=== PATIENT | male | born 1985 | race Caucasian/White ===

== ENCOUNTER 2023-01-15 11:27 | Emergency (ER) | payer OTHER, SELFPAY ==
[2023-01-15 11:43] VITALS: BP 120/83; PULSE 90; RESP 16; TEMP 37; O2SAT 98
--- NOTE | 2023-01-15 12:23 | ED.WOUNDLAC ---
HPI - Wound/Laceration General Chief Complaint: Wound/Laceration Stated Complaint: puncture to palm left hand Time Seen by Provider: 01/15/23 12:24 Source: patient, RN notes reviewed and old records reviewed Mode of arrival: ambulatory Limitations: no limitations History of Present Illness HPI narrative: 37-year-old male presents to the [facility] with concerns for a puncture to the left hand palmar aspect. Occurred yesterday States he punctured when he was collecting scrap metal last night. Has not washed it. No treatment prior to arrival. Extremity Location: Left: hand Patient tetanus UTD: No Related Data Allergies Allergy/AdvReac Type Severity Reaction Status Date / Time No Known Allergies Allergy Verified 01/15/23 11:42 Review of Systems Review of Systems: All systems reviewed & are unremarkable except as noted in HPI and below Constitutional: Constitutional: Reports no additional constitutional complaints Eyes: Eyes: Reports no additional eye complaints ENT: Reports system reviewed and no additional complaints, except as documented Cardiovascular: Cardiovascular: Reports no additional cardiovascular complaints, Denies chest pain and Denies dyspnea Respiratory: Respiratory: Reports no additional respiratory complaints, Denies chest congestion, Denies cough and Denies dyspnea Gastrointestinal: Gastrointestinal: Reports no additional gastrointestinal complaints, Denies abdominal pain, Denies nausea and Denies vomiting Musculoskeletal: Musculoskeletal: Reports no additional musculoskeletal complaints Integumentary/Breasts: Skin/Breast: Reports as per HPI, Reports skin swelling and Reports wounds Neurologic: Reports system reviewed and no additional complaints, except as documented Psychiatric: Psychiatric: Reports no additional psychiatric complaints Allergic/Immunologic: Allergic/Immunologic: Reports no additional allergic/immunologic complaints PMFSH Past Medical History Medical History Patient denies medical problems Surgical History Surgical History No pertinent past surgical history Comments At the time of my signature, I reviewed and agree with the nursing past medical, surgical, social, and family history. There is no relevant family history pertinent to the patient complaint. Exam Const: General: cooperative, healthy appearing, comfortable, no acute distress, well developed, alert and well nourished Nutritional Appearance: well nourished Orientation/consciousness: patient oriented x3 Limitations: no limitations HENMT: Head: normal to inspection Ears: hearing grossly normal bilaterally and external ears normal Face/Nose/Sinus: Normal external nose present, Normal nares present, Normal nasal mucous membranes and turbinates present, normal facial exam and face symmetric Face and sinus: normal facial exam and face symmetric Eyes: General: appearance normal, both eyes and all related structures Alignment and Position: alignment normal Periorbital: periorbital findings normal Pupils: Equal, round and reactive pupils present EOM: EOMs intact bilaterally Neck: Neck: normal visual inspection, full ROM, no lymphadenopathy and no meningeal signs Chest: Chest palpation & inspection: normal inspection of the chest Resp: Effort & Inspection: normal respiratory effort and able to speak in complete sentences Auscultation: clear to auscultation bilaterally, no crackles, no rales, no rhonchi and no wheezes Cardio: Rate: regular rate Rhythm: regular rhythm Back/Spine/Pelvis: Cervical Spine: cervical ROM normal Skin: General skin exam: normal color and no rashes or lesions noted Lesions: no lesions Rashes: no rashes Other: Puncture wound left hand between fingers 2 and 3 of the pad. Swelling without erythema noted Neuro: General: patient oriented x3, gait normal, tone normal, moves al
[2023-01-15] MEDS: TETANUS,DIPHTHERIA,AC PERTUSSIS ADULT (0.5 ML) BOOSTRIX IM (12:36)
== END 2023-01-15 12:44 | disposition home or self-care (01) ==
PROVIDERS: Emergency Provider Nurse Practitioner
DX: S61.432A Puncture wound without foreign body of left hand, initial encounter (principal); Z23 Encounter for immunization; W26.8XXA Contact with other sharp object(s), not elsewhere classified, initial encounter
CPT/HCPCS: 90471; 90715; 99213; G0463

== ENCOUNTER 2024-05-23 17:40 | Emergency (ER) | payer OTHER, SELFPAY ==
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
[2024-05-23 17:45] VITALS: BP 136/82; PULSE 89; RESP 16; TEMP 37.3; O2SAT 100
--- NOTE | 2024-05-23 18:02 | ED_ITS ---
HPI - Extremity Problem General Chief complaint: Extremity Problem,Nontraumatic Stated complaint: elbows History of Present Illness HPI Narrative: patient is a 39-year-old male, without significant past medical history, presents to [facility] with bilateral elbow pain, onset of symptoms 4 months ago in the right elbow, onset of symptoms 4-5 days ago in the left elbow, worse with movement and localized to the olecranon region. He denies traumatic injuries or falls. He is right-hand dominant. He denies repetitive movement but does state that he says frequently with his elbows resting On a firm surface. He has worn a compression device on the elbow the right side with minimal symptom relief. He has no distal paresthesias. He denies history of gout, he has no other joints with similar symptoms. He has not taken any oral medication to treat his symptoms. He denies any additional associated symptoms modifying factors. Related Data Allergies Allergy/AdvReac Type Severity Reaction Status Date / Time No Known Allergies Allergy Verified 05/23/24 17:52 Review of Systems Musculoskeletal: Musculoskeletal: Reports as per [facility] Past Medical History Medical History Patient denies medical problems Surgical History Surgical History No pertinent past surgical history Exam Const: General: healthy appearing and no acute distress Nutritional Appearance: well nourished Orientation/consciousness: patient oriented x3 Limitations: no limitations HENMT: Head: normal to inspection Ears: external ears normal Face/Nose/Sinus: Normal external nose present Mouth: Yes Normal oral and palatal mucosa present Eyes: Conjunctivae: conjunctivae normal Pupils: Equal, round and reactive pupils present EOM: EOMs intact bilaterally Neck: Neck: normal visual inspection, no lymphadenopathy and no meningeal signs Chest: Chest palpation & inspection: normal inspection of the chest Resp: Effort & Inspection: normal respiratory effort Auscultation: clear to auscultation bilaterally Cardio: Rate: regular rate Rhythm: regular rhythm Skin: General skin exam: normal color Rashes: no rashes Wounds: no wounds Neuro: General: patient oriented x3, moves all extremities, no meningeal signs, no focal motor deficits and CN's II-XI intact bilaterally Cranial nerves: Yes Nystagmus not present Speech: normal speech Gait exam (Neuro): Normal gait present Extrem: Other: Patient is tender palpation over the left olecranon process. There is no gross swelling or erythema, no warmth appreciated. The right elbow is also mildly tender over the olecranon region. There is no range of motion deficit. Distal PMS intact bilaterally. Course Course Emergency Course: Patient denies traumatic injury to the elbows. Imaging is therefore deferred. Suspected olecranon bursitis. Will treat with short steroid course, patient is advised he must follow up with his primary doctor in 5-7 days if symptoms not resolving for further diagnostic workup. Patient verbalized understanding he is agreeable with plan Level of Care: Express Care Visit ([id number]) Vital Signs Vital signs: Vital Signs Temperature 37.3 C 05/23/24 17:45 Pulse Rate 89 05/23/24 17:45 Respiratory Rate 16 05/23/24 17:45 Blood Pressure 136/82 05/23/24 17:45 Pulse Oximetry 100 05/23/24 17:45 Oxygen Delivery Room Air 05/23/24 17:45 Temperature 37.3 C 05/23/24 17:45 Pulse Rate 89 05/23/24 17:45 Respiratory Rate 16 05/23/24 17:45 Blood Pressure 136/82 05/23/24 17:45 Pulse Oximetry 100 05/23/24 17:45 Oxygen Delivery Room Air 05/23/24 17:45 MDM - Extremity (Nontraumatic) MDM Narrative Medical decision making narrative: prednisone, gentle compression, avoiding direct pressure against the olecranon process on a firm surface. Gentle [id number] exercises throughout the day, PCP follow-up Differential Diagnosis Differential diagnosis: Likely other ( olecranon bursitis, epicondylitis, osteoarthritis) Discharge Plan Discharge Clinical Impression: Bilateral olecranon bursitis Patient Disposition: Home, Self-Care Condition: Stable Instructions: Antibiotic Form, Elbow Bursitis (ED) Additional Instructions: REST, ELEVATE THE ELBOWS, AVOIDED DIRECTLY TO OR BLUNTLY PLACING THE ELBOW AGAINST A FIRM SURFACE UNTIL SYMPTOMS HAVE RESOLVED. YOU MAY WEAR A GENTLE COMPRESSION DEVICES YOU ARE WEARING HERE TODAY. COMPLETE ORAL STEROIDS PRESCRIBED. SEE YOUR PRIMARY DOCTOR IN 5-7 DAYS IF SYMPTOMS ARE NOT IMPROVING Patient Language: Malagasy Prescriptions: New prednisone 20 mg tablet 40 mg PO DAILY 5 Days Qty: 10 0RF Follow-up/Referrals: PHYSICIAN,DIGITAL CAMERA TECHNICIAN [Primary Care Provider] - Time of Disposition: 18:07
== END 2024-05-23 18:17 | disposition home or self-care (01) ==
PROVIDERS: Emergency Provider Nurse Practitioner Family
DX: M70.22 Olecranon bursitis, left elbow (principal); M70.21 Olecranon bursitis, right elbow
CPT/HCPCS: 99213; G0463